=== PATIENT | female | born 1965 | race Asian ===

== ENCOUNTER 2023-01-31 11:00 | Outpatient (RCR) | payer BC, SELFPAY | END 2023-01-31 23:59 | disposition home or self-care (01) | LOC: RPT 11:00 | PROVIDERS: ATTENDING PHYSICIAN Nurse Practitioner Adult Health; PRIMARYCARE PHYSICIAN Physician Assistant | DX: N39.3 Stress incontinence (female) (male) (principal); N39.41 Urge incontinence; M62.89 Other specified disorders of muscle; R27.8 Other lack of coordination; Z73.6 Limitation of activities due to disability; M62.81 Muscle weakness (generalized) | CPT/HCPCS: 97014; 97112; 97530 ==

== ENCOUNTER 2023-02-15 16:57 | Outpatient (RCR) | payer BC, SELFPAY | END 2023-02-15 23:59 | disposition home or self-care (01) | LOC: RPT 16:57 | PROVIDERS: ATTENDING PHYSICIAN Orthopaedic Surgery Hand Surgery; PRIMARYCARE PHYSICIAN Physician Assistant | DX: M75.42 Impingement syndrome of left shoulder (principal) | CPT/HCPCS: 97010; 97110; 97140 ==

== ENCOUNTER 2023-03-18 06:25 | Outpatient (RCR) | payer BC, SELFPAY | END 2023-03-21 07:52 | disposition home or self-care (01) | LOC: RPT 06:25 | PROVIDERS: ATTENDING PHYSICIAN Nurse Practitioner Adult Health; PRIMARYCARE PHYSICIAN Physician Assistant | DX: N39.3 Stress incontinence (female) (male) (principal); N39.41 Urge incontinence; M62.89 Other specified disorders of muscle; Z73.6 Limitation of activities due to disability | CPT/HCPCS: 97014; 97112; 97530 ==

== ENCOUNTER 2023-03-29 10:10 | Outpatient (RCR) | payer BC, SELFPAY | END 2023-03-29 23:59 | disposition home or self-care (01) | LOC: RPT 10:10 | PROVIDERS: ATTENDING PHYSICIAN Orthopaedic Surgery Hand Surgery; PRIMARYCARE PHYSICIAN Physician Assistant | DX: M75.42 Impingement syndrome of left shoulder (principal); Z73.6 Limitation of activities due to disability | CPT/HCPCS: 97110; 97140 ==

== ENCOUNTER 2023-04-28 12:03 | Outpatient (RCR) | payer BC, SELFPAY | END 2023-04-28 23:59 | disposition home or self-care (01) | LOC: RPT 12:03 | PROVIDERS: ATTENDING PHYSICIAN Orthopaedic Surgery Hand Surgery; PRIMARYCARE PHYSICIAN Physician Assistant | DX: M75.42 Impingement syndrome of left shoulder (principal); Z73.6 Limitation of activities due to disability | CPT/HCPCS: 97010; 97110; 97140 ==

== ENCOUNTER 2023-05-27 09:03 | Outpatient (RCR) | payer BC, SELFPAY | END 2023-05-27 23:59 | disposition home or self-care (01) | LOC: RPT 09:03 | PROVIDERS: ATTENDING PHYSICIAN Orthopaedic Surgery Hand Surgery; PRIMARYCARE PHYSICIAN Physician Assistant | DX: M75.42 Impingement syndrome of left shoulder (principal); Z73.6 Limitation of activities due to disability | CPT/HCPCS: 97110; 97140 ==

== ENCOUNTER → 2023-06-23 06:43 | Outpatient (REF) | payer BC, SELFPAY | LOC: WDC 06:43 | PROVIDERS: ATTENDING PHYSICIAN Nurse Practitioner Adult Health; FAMILY PHYSICIAN Physician Assistant | DX: Z12.31 Encounter for screening mammogram for malignant neoplasm of breast (principal) | CPT/HCPCS: 77063; 77067 ==

== ENCOUNTER → 2023-08-18 11:49 | Outpatient (REF) | payer BC, SELFPAY ==
[2023-08-18 13:41] LABS: % Basophils 0.8 % (0-2); % Eosinophils 2.4 % (0-6); % Immature Granulocytes 0.3 % (0-0.5); % Lymphocytes 38.1 % (20.5-51.1); % Monocytes 3.9 % (1.7-9.3); % Neutrophils 54.5 % (42.2-75.2); Absolute Basophils 0.1 10^3/uL (0-0.2); Absolute Eosinophils 0.2 10^3/uL (0-0.7); Absolute Lymphocytes 2.8 10^3/uL (1.2-3.4); Absolute Monocytes 0.3 10^3/uL (0.1-0.6); Absolute Neutrophils 4.1 10^3/uL (1.4-6.5); Hematocrit 39.9 % (37.0-47.0); Hemoglobin 13.9 g/dL (12.0-16.0); Mean Corp Hgb Conc. 34.8 g/dL (33.0-37.0); Mean Corpuscular Hgb 30.2 pg (27.0-31.0); Mean Corpuscular Volume 86.6 fL (81.0-99.0); Mean Platelet Volume 9.7 fL (7.4-10.4); Nucleated Red Blood Cells % 0 %; Platelet Count 333 10^3/uL (130-400); Red Blood Cell Count 4.61 10^6/uL (4.20-5.40); Red Cell Dist. Width 12.1 % (11.5-14.5); White Blood Cell Count 7.5 10^3/uL (4.8-10.8)
[2023-08-18 14:02] LABS: ALT (SGPT) 21 U/L (0-35); AST (SGOT) 30 U/L (14-36); Albumin 4.8 g/dl (3.5-5.0); Alkaline Phosphatase 78 U/L (38-126); Blood Urea Nitrogen 17 mg/dl (7-17); Calcium 9.8 mg/dl (8.4-10.2); Carbon Dioxide 27 mmol/L (22-30); Chloride 104 mmol/L (98-107); Glucose 94 mg/dl (70-99); HDL Cholesterol 80 mg/dl; LDL Cholesterol, Calculated 131 mg/dl; Potassium 4.6 mmol/L (3.5-5.1); Sodium 140 mmol/L (135-145); Total Bilirubin 0.6 mg/dl (0.2-1.3); Total Cholesterol 236 mg/dl (50-199); Total Protein 8.1 g/dl (6.3-8.2); Triglyceride 129 mg/dl (10-149); Very Low Density Lipoprotein 25 mg/dl (0-30); eGFR > 60.00
== END ==
LOC: REG 11:49
PROVIDERS: ATTENDING PHYSICIAN Physician Assistant
DX: Z00.00 Encounter for general adult medical examination without abnormal findings (principal); I10 Essential (primary) hypertension; F98.8 Other specified behavioral and emotional disorders with onset usually occurring in childhood and adolescence; N81.6 Rectocele; E78.2 Mixed hyperlipidemia
CPT/HCPCS: 36415; 80053; 80061; 84443; 85025

== ENCOUNTER → 2024-01-02 08:16 | Outpatient (REF) | payer BC, SELFPAY | LOC: RCS 08:16 | PROVIDERS: ATTENDING PHYSICIAN Internal Medicine Cardiovascular Disease; FAMILY PHYSICIAN Physician Assistant | DX: I10 Essential (primary) hypertension (principal) | CPT/HCPCS: 93306 ==

== ENCOUNTER → 2024-01-18 10:17 | Outpatient (REF) | payer BC, SELFPAY | LOC: CPAP 10:17 | PROVIDERS: ATTENDING PHYSICIAN Nurse Practitioner Adult Health | DX: Z01.419 Encounter for gynecological examination (general) (routine) without abnormal findings (principal); N87.9 Dysplasia of cervix uteri, unspecified | CPT/HCPCS: 87070 ==

== ENCOUNTER 2024-05-04 06:24 | Day surgery (SDC) | payer OTHER, SELFPAY | END 2024-05-04 10:45 | disposition home or self-care (01) | LOC: GI 06:24 | PROVIDERS: ATTENDING PHYSICIAN Internal Medicine Gastroenterology | DX: Z12.11 Encounter for screening for malignant neoplasm of colon (principal); D12.0 Benign neoplasm of cecum; D12.2 Benign neoplasm of ascending colon; K57.30 Diverticulosis of large intestine without perforation or abscess without bleeding; Z86.0101 Personal history of adenomatous and serrated colon polyps; Z83.719 Family history of colon polyps, unspecified | CPT/HCPCS: 45385; 88305 ==

== ENCOUNTER 2024-05-06 03:16 | Inpatient (IN) | payer OTHER, SELFPAY ==
[2024-05-05 20:55] VITALS: BP 159/76
[2024-05-05 21:16] LABS: % Basophils 0.6 % (0-2); % Eosinophils 1.3 % (0-6); % Immature Granulocytes 0.3 % (0-0.5); % Lymphocytes 30.2 % (20.5-51.1); % Monocytes 4.3 % (1.7-9.3); % Neutrophils 63.3 % (42.2-75.2); Absolute Basophils 0.1 10^3/uL (0-0.2); Absolute Eosinophils 0.1 10^3/uL (0-0.7); Absolute Lymphocytes 3.1 10^3/uL (1.2-3.4); Absolute Monocytes 0.4 10^3/uL (0.1-0.6); Absolute Neutrophils 6.4 10^3/uL (1.4-6.5); Hematocrit 35.1 % (37.0-47.0); Hemoglobin 12.3 g/dL (12.0-16.0); Mean Corpuscular Hgb 30.2 pg (27.0-31.0); Mean Corpuscular Volume 86.2 fL (81.0-99.0); Mean Platelet Volume 8.8 fL (7.4-10.4); Nucleated Red Blood Cells % 0 %; Platelet Count 292 10^3/uL (130-400); Red Blood Cell Count 4.07 10^6/uL (4.20-5.40); Red Cell Dist. Width 12.2 % (11.5-14.5); White Blood Cell Count 10.1 10^3/uL (4.8-10.8)
[2024-05-05 21:28] LABS: ALT (SGPT) 28 U/L (0-35); AST (SGOT) 26 U/L (14-36); Albumin 4.7 g/dl (3.5-5.0); Alkaline Phosphatase 76 U/L (38-126); Blood Urea Nitrogen 25 mg/dl (7-17); Calcium 9.5 mg/dl (8.4-10.2); Carbon Dioxide 21 mmol/L (22-30); Chloride 101 mmol/L (98-107); Glucose 182 mg/dl (70-99); Sodium 135 mmol/L (135-145); Total Bilirubin 0.6 mg/dl (0.2-1.3); Total Protein 7.1 g/dl (6.3-8.2); eGFR > 60.00
[2024-05-05 22:35] VITALS: BMI 26.3
--- NOTE | 2024-05-05 22:39 | EDRN ---
Pt had a colonoscopy yesterday morning and was alright yesterday. Pt had BM this morning, no blood. This afternoon, pt went to the bathroom and passed bright red blood and clots and has been doing so approximately every 30 minutes. Pt called
doctor but did not leave a message. Pt denies abd pain, n/v, cp, sob, fever/chills/cough. Pt feels 'a little lightheaded or tired, I'm not sure which.'
[2024-05-05 22:41] VITALS: BP 148/75
[2024-05-05 23:00] VITALS: BP 131/69
--- NOTE | 2024-05-05 23:10 | ED.GENMED ---
History of Present Illness
General
Chief Complaint: Rectal Bleeding
Source: patient, spouse, previous radiology exam (Echocardiogram December 2023, unremarkable showing EF of 60%. No valvular abnormalities.) and previous hospital records (Colonoscopy performed yesterday with 10 mm polypectomy at cecum, 5 mm
polypectomy ascending colon.)
Exam Limitations: none
Time Seen by Provider: 05/05/24 22:53
Nursing documentation reviewed up to this point in time: agreed with
History of Present Illness
History of Present Illness:
This is a 58-year-old woman with history of hypertension, anxiety, ADD who underwent surveillance colonoscopy yesterday with 10 mm polypectomy of the cecum, 5 mm polypectomy of the ascending colon. Colonoscopy also noted diverticulosis.
She was feeling well today and passed a normal bowel movement this morning but around 4:30 PM she began to pass maroon to bright red blood with clots. Initial bloody stool approximately 1 cup fall. Since then she has passed bright red blood per
rectum every 30 to 60 minutes perhaps 6 or 7 episodes in total. She does admit to very mild lightheadedness, no diaphoresis, no chest pain or palpitations, no cough. She admits to perhaps very mild dyspnea on exertion. She also notes intermittent
mild crampy lower abdominal discomfort more so when she feels the need to pass a bowel movement.
She takes no anticoagulants.
She did not notify GI.
Past History
Past History
ED Past Medical History: HTN and Psychiatric
ED Past Surgical History: Other (Previous eye surgery)
Social History
Tobacco: Former smoker
Alcohol: Occasional
Drug: None
Personal:
Living: with family
Employment: Retired (Nurse)
Family History
Family History: Cancer (Colon cancer)
Phy Exam
Physical Exam
Physical Exam:
GENERAL: 58-year-old woman appears her stated age, bright and alert, pleasant, appears in no acute distress. and daughter are accompanying. Vital signs within normal limits.
EYE: anicteric
NECK: Supple, nontender, no meningismus, no significant adenopathy.
ENT: oral mucosa is moist. No rhinorrhea.
CARDIAC: Regular rate and rhythm. no murmur.
LUNGS: Clear breath sounds bilaterally, no acute respiratory distress, no wheezes/rales/rhonchi
ABDOMEN: Soft, nondistended, without focal tenderness, no r/g, no cvat. normoactive BS.
NEUROLOGICAL: Alert and oriented x3, no focal neuro deficits.
SKIN: Warm and dry, normal color, skin intact. No rash.
MUSCULOSKELETAL: No C/C/E. peripheral pulses are full and equal b/l. No palpable tenderness.
PSYCH: Normal and appropriate interaction.
Course
Orders/Labs/Results
Orders:
Orders
05/05/24 21:05
Type And Crossmatch [Type+Screen] Urgent
CBC/With Diff [Complete Blood Count/With Diff] Urgent
CMP [Comprehensive Metabolic Panel] Urgent
05/05/24 22:44
ABO2 Urgent
BBK Wristband Number:
Associate notified that ABO2 has been ordered: [id number]
Date: 05/05/24
Time: 21:16
[employer] ID: [id number]
05/05/24 22:56
0.9% Sodium Chloride 1000 ml [Nss] 1,000 ml IV BOLUS
05/05/24 23:09
0.9% Sodium Chloride 1000 ml [Nss] 1,000 ml IV BOLUS
05/06/24 00:00
Ct Cta A/P W/Wo Urgent
Reason For Exam: rectal bleeding. cecal and asd colon polypect yest
05/06/24 00:50
Hematocrit Urgent
Hemoglobin Urgent
Abnormal Lab Results
05/05/24 05/06/24
21:05 00:50
RBC 4.07 L 10^6/uL
(4.20-5.40)
Hgb 9.9 L g/dL
(12.0-16.0)
Hct 35.1 L % 27.5 L %
(37.0-47.0) (37.0-47.0)
Carbon Dioxide 21 L mmol/L
(22-30)
BUN 25 H mg/dl
(7-17)
Glucose 182 H mg/dl
(70-99)
05/06/24 00:50
05/05/24 21:05
Vital Signs
Initial and Last Documented VS:
Initial Vital Signs
Temp Pulse Resp BP Pulse Ox
97.6 F 121 17 159/76 98
05/05/24 20:55 05/05/24 20:55 05/05/24 20:55 05/05/24 20:55 05/05/24 20:55
Last Documented Vital Signs
Temp Pulse Resp BP Pulse Ox
97.6 F 102 19 131/69 98
05/05/24 20:55 05/05/24 23:00 05/05/24 23:00 05/05/24 23:00 05/05/24 20:55
MDM/Problems Addressed
Differential Diagnosis Includes:
Concern for polypectomy site bleeding, other consideration is acute diverticular bleeding.
Concern for acute blood loss anemia.
Thus far hemodynamically stable.
Will initiate IV fluid bolus�x [address] angiogram of the abdomen pelvis.
Will contact GI with results.
*Radiology
Radiology exam reviewed: radiology read reviewed
*Pulse Oximetry
Patient hypoxic: no
*Oral Therapist Interpretation
Rate: normal
Interpretation: normal
Rhythm: sinus
*Critical Care Note
Total Time (30-74mins, 75-104mins- exclusive of procedures): 30
comment:
Critical care statement: A total of 30 minutes of critical care time was provided for this patient. This includes management of unstable vital signs, evaluation of the patient at bedside, reviewing the patient's pertinent medical records, discussion
with consultants, review of old EKGs and review of pertinent medical records. This time with separate from time utilized to perform the aforementioned documented procedures
Update Note
Update Note:
01:00
Thus far patient remains hemodynamically stable but continues with moderate rectal bleeding generally every hour.
CTA shows active extravasation near the cecum and questionably within the sigmoid colon. Sigmoid colonic bleeding is much less likely as patient had no instrumentation/biopsy at the sigmoid colon.
Case discussed with GI who recommends admit to hospitalist service and continue n.p.o. status.
Repeat H&H pending.
GI plans for urgent colonoscopy if patient becomes unstable.
ED Attending Note
-
Portions of this chart may have been created with voice recognition software.� Occasional wrong word or��sound alike� substitutions may have occurred due to the inherent limitations of voice recognition software.
Discharge Plan
Departure
Patient Disposition: Admit
Date of Disposition: 05/06/24
Time of Disposition: 01:01
Admit to: ICU
Admit to doctor: Bernardo
Presentation/result/management discussed w/ accepting MD/DO: Hospitalist
Condition: Serious
Discharge Problem:
Acute lower gastrointestinal hemorrhage, Post-polypectomy bleeding
Prescriptions:
No Action
sertraline 100 mg Tablet
100 mg PO DAILY
valsartan 80 mg Tablet
80 mg PO DAILY
valacyclovir 500 mg Tablet
500 mg PO BIDPRN PRN (Reason: herpes)
dextroamphetamine-amphetamine [Adderall XR] 20 mg Capsule,Extended Release 24hr
20 mg PO DAILY
metoprolol succinate 25 mg Tablet Extended Release 24 Hr
25 mg PO DAILY
Centrum Silver Women 8 mg iron-400 mcg-50 mcg Tablet
1 tab PO DAILY
Referrals:
Lisa Crawford PA-C [Family Provider] -
Interventions
Interventions:
*Risk Screen - Suicide Last Done: 05/05/24 20:55
*General Assessment Last Done: 05/05/24 20:55
*Neglect/Abuse Screening Last Done: 05/05/24 20:55
*ED- Fall Risk Assessment Last Done: 05/05/24 23:00
*ED COVID-19 Vaccine History Last Done: 05/05/24 20:55
RH-Pyplep-Awcioalqvg Assessment Last Done: 05/05/24 23:35
ED- Cardiac Assessment Last Done: 05/05/24 23:00
ED- Pulmonary Assessment Last Done: 05/05/24 23:00
Discharge Date and Time
Print Language: ROMANSH
[2024-05-05] MEDS: NSS 1000 IV ×2 (23:17→23:18)
[2024-05-06] VITALS (43 sets, daily range): BP systolic 102–140; BP diastolic 53–92; BMI 26.0
[2024-05-06 01:00] LABS: Hematocrit 27.5 % (37.0-47.0); Hemoglobin 9.9 g/dL (12.0-16.0)
[2024-05-06] MEDS: LR 1000 IV (01:27)
--- NOTE | 2024-05-06 01:44 | EDRN ---
White card sent for 1st unit PRBC
--- NOTE | 2024-05-06 01:50 | EDRN ---
Pt using [facility] again, Dr Chang asking pt when she last ate. Blood bank called and said blood is ordered on hold for OR or give if unstable. Dr Chang informed and said to give a unit now, informed blood bank needs the order changed.
--- NOTE | 2024-05-06 01:56 | HPS.HSE ---
Family Physician
-
Family Physician: Lisa Crawford
Chief Complaint
-
BRBPR
History of Present Illness
Patient is a 58y F with PMH significant for hypertension who presents to ED complaining of BRBPR. Patient underwent colonoscopy on 05/04/24. She had polypectomy at the cecum (10mm) and the ascending colon (5mm). Patient tolerated the procedure
well and notes that she felt well yesterday and this AM. She states that she had a large BM this AM with no evidence of blood. Around 4:30 PM today, she had a large bowel movement that consisted primarily of clots and gross blood. Since that
time, she has had multiple additional episodes. Initially every 30 minutes or so and - here in the ED - now every 15-20 minutes or so.
Patient had no other symptoms prior to presentation to the ED. At the time of my examination, she reports some nausea and lightheadedness.
She takes no ASA or anticoagulants. No history of bleeding disorders, etc.
Patient denies any abdominal pain, fevers / chills, etc.
Medical History
Past Medical History
Past Medical History: Reports Other
Additional Past Medical History:
Hypertension
Migraines
Anxiety / Depression
ADHD
Past Surgical History: Reports None
Social History
Tobacco: Former Smoker (Quit smoking 30 years ago.)
Alcohol: Occasional
Drug: None
Family History
Family History: Not pertinent
Allergies / Home Medications
Allergies reflects when Allergies were last updated in [employer].
Home Medications with original date entered in [employer]
Allergy/Medication List:
Allergies
Allergy/AdvReac Type Severity Reaction Status Date / Time
No Known Allergies Allergy Unverified 05/05/24 22:35
Home Medications
dextroamphetamine-amphetamine ER 20 mg 24hr capsule,extend release (Adderall XR) 20 mg PO DAILY 05/05/24
metoprolol succinate 25 mg tablet,extended release 24 hr 25 mg PO DAILY 05/05/24
ergacduk-siod-vzgx 8 mg-folic 400 mcg-K 50 mcg-lutein 300 mcg tablet (Centrum Silver Women) 1 tab PO DAILY 05/05/24
sertraline 100 mg tablet 100 mg PO DAILY 05/05/24
valacyclovir 500 mg tablet 500 mg PO BIDPRN PRN herpes 05/05/24
valsartan 80 mg tablet 80 mg PO DAILY 05/05/24
Review of Systems
-
History Source: Patient
A 12 point ROS was completed and negative except as noted: Yes
Constitutional: Reports Fatigue; Denies Fever or Chills
Respiratory: Denies Cough or Trouble Breathing
Cardiac: Denies Chest Pain or Palpitations
Abdomen/GI: Reports Nausea and Bloody Stools; Denies Abdominal Pain or Vomiting
: Denies Dysuria or Frequency
Musculoskeletal: Denies Joint Pain or Edema
Neurological: Denies Dizzy or Headache
Psych: Denies Depression or Anxiety
Physical Exam
Vital Signs
Vital Signs
Temp Pulse Resp BP Pulse Ox
97.6 F 88 11 108/92 98
05/05/24 20:55 05/06/24 01:37 05/06/24 01:37 05/06/24 01:37 05/05/24 20:55
Physical Exam
General: Other (58y F - mildly pale-appearing - in no acute distress.)
HEENT: Moist mucous membranes and PERRLA
Respiratory: Clear; No Wheezes, Rales or Rhonchi
Cardiac: S1/S2 and Regular Rhythm; No Murmur
GI: Soft, Non Tender, Non Distended, Normal Bowel Sounds and Other (Gross blood per rectum - mutliple episodes here in the ED.)
Musculoskeletal: No Clubbing, No Cyanosis and No Edema
Neuro: AO x 3
Laboratory Results
-
05/06/24 00:50
05/05/24 21:05
Laboratory Results
Total Bilirubin 0.6 mg/dl (0.2-1.3) 05/05/24 21:05
AST 26 U/L (14-36) 05/05/24 21:05
ALT 28 U/L (0-35) 05/05/24 21:05
Alkaline Phosphatase 76 U/L (38-126) 05/05/24 21:05
Impression/Plan
-
A/P: Patient is a 58y F with PMH significant for hypertension who presents to ED complaining of BRBPR s/p colonoscopy with polypectomy done the day prior to admission.
Postpolypectomy Bleeding
Acute Blood Loss Anemia
- Admit to ICU for further evaluation and treatment.
- Two large bore IVs in place with aggressive volume expansion.
- Two units PRBCs ordered now with ongoing blood loss and fall in Hgb from 12.3 to 9.9 in the past few hours.
- GI consulted and to evaluate patient here in the ED for additional recommendations.
- CT done in the ED shows focus of active blood loss in the cecum - very likely site of recent polypectomy.
- Patient may require intervention - with either repeat colonoscopy or IR angio - to control bleeding.
- Avoid antiplatelets, NSAIDs, etc.
- Follow H&H and provide additional blood product support as needed.
Benign Hypertension
- Hold all antihypertensive medications acutely in setting of volume loss / relative hypotension.
DVT Prophylaxis: SCDs
Code Status: Full
--- NOTE | 2024-05-06 03:42 | EDRN ---
Called report to Cnadido in ICU
--- NOTE | 2024-05-06 03:43 | EDRN ---
Pt using BSC, HR in 120's.
--- NOTE | 2024-05-06 04:11 | CON.GI ---
Consultation
-
Date/Time Consultation Requested: 05/06/24 at 1am
Date/Time Consultation Performed: 05/06/24 at 3am (time change occurred over that time)
Requesting Provider: raquel
Performing Provider: senait
Reason for Consultation: post polypectomy bleedng
Medical History
Chief Complaint / HPI
Chief Complaint: bleeding
History of Present Illness:
A 58-year-old woman with history of hypertension who is having a screening colonoscopy on May 04 in the morning. She did have a flat polyp removed with snare cautery in the cecum. She also the smaller polyp removed in the ascending colon.
Another polyp was greater than a centimeter and I did view the pictures. She had some scattered small diverticula. She had a normal bowel movement this morning and has been eating. She did have blood per rectum about 4:30 PM this evening. She
states that it occurred every 1/2 hour with some blood and clots. She did eventually come to the hospital in the late evening. In between she did eat dinner. She denies any abdominal pain and is only dizzy when she stands up. She otherwise feels
well. She continues to have bleeding intermittently with clots and blood per rectum. Her hemoglobin did drop 2 units while she was in the ER. She did take 2 NSAIDs but that was last weekend. She otherwise is not on any anticoagulation. CTA
showed extravasation in the cecum which question of the sigmoid.
Past Medical History
Past Medical History: HTN and Other (Migraines, anxiety)
Past Surgical History: None
Social History
Tobacco: Former Smoker
Alcohol: Occasional
Family History
Family History: Reviewed & Not Pertinent
Allergies / Home Medications
Allergy/AdvReac Type Severity Reaction Status Date / Time
No Known Allergies Allergy Unverified 05/05/24 22:35
�Medication �Instructions �Recorded
dextroamphetamine-amphetamine ER 20 mg PO DAILY 05/05/24
20 mg 24hr capsule,extend release
(Adderall XR)
metoprolol succinate 25 mg 25 mg PO DAILY 05/05/24
tablet,extended release 24 hr
dcdqopbs-vblt-lwld 8 mg-folic 400 1 tab PO DAILY 05/05/24
mcg-K 50 mcg-lutein 300 mcg tablet
(Centrum Silver Women)
sertraline 100 mg tablet 100 mg PO DAILY 05/05/24
valacyclovir 500 mg tablet 500 mg PO BIDPRN PRN herpes 05/05/24
valsartan 80 mg tablet 80 mg PO DAILY 05/05/24
Review of Systems
-
All other systems: A 12 pt ROS was Negative except as stated above in HPI
Vital Signs
Temp Pulse Resp BP Pulse Ox
97.6 F 85 20 128/60 98
05/06/24 03:25 05/06/24 03:25 05/06/24 03:25 05/06/24 03:25 05/05/24 20:55
Physical Exam
Exam
General: No Apparent Distress
Respiratory: Clear
Cardiac: S1/S2
GI: Soft and Non Tender
Rectal: Other (clots and blood, ? stool in commode)
Skin: Warm
Neuro: AO x 3
Psych: Calm
Results
WBC 10.1 10^3/uL (4.8-10.8) 05/05/24 21:05
Hgb 9.9 g/dL (12.0-16.0) L 05/06/24 00:50
Hct 27.5 % (37.0-47.0) L 05/06/24 00:50
MCV 86.2 fL (81.0-99.0) 05/05/24 21:05
Plt Count 292 10^3/uL (130-400) 05/05/24 21:05
Absolute Neuts (auto) 6.4 10^3/uL (1.4-6.5) 05/05/24 21:05
Sodium 135 mmol/L (135-145) 05/05/24 21:05
Potassium 4.0 mmol/L (3.5-5.1) 05/05/24:
Chloride 101 mmol/L (98-107) 05/05/24:
Carbon Dioxide 21 mmol/L (22-30) L 05/05/24:
BUN 25 mg/dl (7-17) H 05/05/24:
Creatinine 0.9 mg/dL (0.6-1.0) 05/05/24:
Calcium 9.5 mg/dl (8.4-10.2) 05/05/24:
Total Bilirubin 0.6 mg/dl (0.2-1.3) 05/05/24:
AST 26 U/L (14-36) 05/05/24:
ALT 28 U/L (0-35) 05/05/24:
Alkaline Phosphatase 76 U/L (38-126) 05/05/24:
Assessment / Plan
-
Patient is a 58-year-old woman with a post polypectomy bleed in the cecum. She has dropped her hemoglobin 2 g while being in the ER but is hemodynamically stable right now. For now we will do the following:
1. Discussed with patient and family that since she is stable ideally we would do a modified prep and colonoscopy. She does need this as she was eating and did have a large bm this morning (non bloody). Alternatively if she becomes unstable she
would go to IR first. 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 I did request 8am from nurse color control supervisor as she will be done with prep more than 2 hours befoe.
2. agree with 2 units blood
3. follow hgb
4. NPO
5. Pt in ICU for monitoring
-
-
Thank you for consultation and allowing me to participate in the patient's care. Please call the provider contracting consultant GI physician during the after hours with any questions or concerns.
[2024-05-06] MEDS: MIRALAX 51 GRAMS PO (04:41)
[2024-05-06 04:57] LABS: Glucose - Point of Care 110 mg/dl (70-99)
--- NOTE | 2024-05-06 05:00 | PTCARENOTE ---
Received pt. from ED. Pt. awake, alert, and oriented. Denies pain/discomfort. Afebrile. Heart rhythm sinus. Blood pressure normotensive. Currently on room air. Lungs sound clear. Multiple bloody BM with clots. GI at bedside. Plan to bowel prep pt.
then take for colonoscopy. Voiding without issue. Skin as documented. Discussed plan of care with patient. Vital signs stable at this time.
[2024-05-06 05:24] LABS: INR 1.02; PT 13.7 Sec (11.4-14.6)
[2024-05-06 05:25] LABS: APTT 29.7 Sec (23.4-35.0)
[2024-05-06 05:42] LABS: Blood Urea Nitrogen 18 mg/dl (7-17); Calcium 7.9 mg/dl (8.4-10.2); Carbon Dioxide 20 mmol/L (22-30); Chloride 107 mmol/L (98-107); Estimated Creatinine Clearance 80 ml/min; Glucose 114 mg/dl (70-99); Magnesium 1.7 mg/dl (1.6-2.3); Phosphorus 3.2 mg/dl (2.5-4.5); Sodium 137 mmol/L (135-145); eGFR > 60.00
[2024-05-06 05:47] LABS: % Basophils 0.6 % (0-2); % Eosinophils 1.7 % (0-6); % Immature Granulocytes 0.5 % (0-0.5); % Lymphocytes 28.3 % (20.5-51.1); % Monocytes 4.9 % (1.7-9.3); Absolute Basophils 0.1 10^3/uL (0-0.2); Absolute Eosinophils 0.1 10^3/uL (0-0.7); Absolute Lymphocytes 2.2 10^3/uL (1.2-3.4); Absolute Monocytes 0.4 10^3/uL (0.1-0.6); Absolute Neutrophils 4.9 10^3/uL (1.4-6.5); Hematocrit 29.9 % (37.0-47.0); Mean Corp Hgb Conc. 33.4 g/dL (33.0-37.0); Mean Corpuscular Hgb 29.9 pg (27.0-31.0); Mean Corpuscular Volume 89.3 fL (81.0-99.0); Mean Platelet Volume 8.9 fL (7.4-10.4); Nucleated Red Blood Cells % 0 %; Platelet Count 202 10^3/uL (130-400); Red Blood Cell Count 3.35 10^6/uL (4.20-5.40); Red Cell Dist. Width 12.7 % (11.5-14.5); White Blood Cell Count 7.7 10^3/uL (4.8-10.8)
--- NOTE | 2024-05-06 07:11 | W.PN.HOSP.TC ---
Today's Communication/Plan
-
monitor H&H
diet as per GI
resume home antihypertensives with holding parameters
pain control
blood pressure control
Assessment / Plan
Assessment / Plan
Physical Exam
General: mild moderate discomfort d/t abd pain
HEENT: Moist mucous membranes and PERRLA
Respiratory: Clear; No Wheezes, Rales or Rhonchi
Cardiac: S1/S2 and Regular Rhythm; No Murmur
GI: Soft, mild tenderness, bowel sounds present
Musculoskeletal: No Clubbing, No Cyanosis and No Edema
Neuro: AO x 3
A/P: Patient is a 58y F with PMH significant for hypertension who presents to ED complaining of BRBPR s/p colonoscopy with polypectomy done the day prior to admission.
Postpolypectomy Bleeding
Acute Blood Loss Anemia
- ICU admit
- Two large bore IVs in place with aggressive volume expansion.
- Received total Two units PRBCs with ongoing blood loss and fall in Hgb from 12.3 to 9.9 in hours.
- CT showed focus of active blood loss in the cecum - very likely site of recent polypectomy.
- GI consult appreciated Colonoscopy performed identified large vessel actively bleeding in cecum, 2/2 previous polypectomy, cauterized
- [employer] eval appreciated
- Avoid antiplatelets, NSAIDs
- Follow H&H and provide additional blood product support as needed.
Hypertension
- Home Valsartan Metoprolol resumed with holding parameters
DVT Prophylaxis: SCDs
Code Status: Full
Total Critical Care Time__40___ minutes. I was immediately available to the patient and staff. I personally examined, reviewed labs, diagnostic images/reports, interpretations, treatment plans, discussed patient care with other providers,
patient, and patient's Puneet, entered orders as appropriate and documented the medical record.
Anticipated Discharge: 24 - 48 hours
Subjective/Interval History
-
Date of Service: May 06, 2024
reports nausea abd cramping/tenderness. stable respiratory status on room air.
Objective Data
-
Labs:
Laboratory Results
05/05/24 05/06/24 05/06/24
21:05 00:50 04:53
WBC 10.1 7.7
Hgb 12.3 9.9 L 10.0 L
Hct 35.1 L 27.5 L 29.9 L
Plt Count 292 202 D
PT 13.7
INR 1.02
APTT 29.7
Sodium 135 137
Potassium 4.0 4.0
Chloride 101 107
Carbon Dioxide 21 L 20 L
BUN 25 H 18 H
Creatinine 0.9 0.7
Glucose 182 H 114 H
Calcium 9.5 7.9 L D
Total Bilirubin 0.6
AST 26
ALT 28
Alkaline Phosphatase 76
05/06/24 05/06/24 05/06/24
08:00 10:08 16:08
WBC
Hgb Pending Pending Pending
Hct Pending Pending Pending
Plt Count
PT
INR
APTT
Sodium
Potassium
Chloride
Carbon Dioxide
BUN
Creatinine
Glucose
Calcium
Total Bilirubin
AST
ALT
Alkaline Phosphatase
05/06/24
22:08
WBC
Hgb Pending
Hct Pending
Plt Count
PT
INR
APTT
Sodium
Potassium
Chloride
Carbon Dioxide
BUN
Creatinine
Glucose
Calcium
Total Bilirubin
AST
ALT
Alkaline Phosphatase
Vital Signs:
Vital Signs
Temp Pulse Resp BP Pulse Ox
97.9 F 78 19 127/84 100
05/06/24 05:38 05/06/24 06:30 05/06/24 06:30 05/06/24 06:00 05/06/24 05:30
I&O
05/05/24 05/06/24 05/07/24
05:59 06:59 06:59
Intake Total
Balance
[2024-05-06] MEDS: PROTONIX IV 40 MG IV (07:13)
--- NOTE | 2024-05-06 07:36 | PTCARENOTE ---
2nd unit PRBCs transfused. Vitals stable. Patient transported to GI lab.
[2024-05-06] MEDS: ZOFRAN 4 MG IV (08:50)
--- NOTE | 2024-05-06 08:55 | PTCARENOTE ---
Patient back from GI lab. C/o nausea and abdominal cramping. Zofran administered. Placed on bedpan for BM. VSS.
[2024-05-06] MEDS: MORPHINE SULFATE 2 MG IV (09:30)
[2024-05-06] MEDS: COMPAZINE 5 MG IV (09:31)
[2024-05-06 09:42] LABS: Hematocrit 30.1 % (37.0-47.0); Hemoglobin 10.7 g/dL (12.0-16.0)
--- NOTE | 2024-05-06 09:46 | PTCARENOTE ---
Patient with worsening nausea s/p zofran. Emesis x1; bile appearance. No BM. Abdominal cramping unrelieved. Orders for 2mg Morphine and 5mg Compazine obtained and administered. Patient now resting comfortably. Repeat H&H - 10.7/30.1.
[2024-05-06] MEDS: CALCIUM GLUCONATE 100 IV (10:16)
--- NOTE | 2024-05-06 11:05 | CON.INTV ---
Consultation
Consultation Request
Date/Time Consultation Requested: 05/06/2024
Date/Time Consultation Performed: 05/06/2024
Requesting Provider: Rajiv Chang
Performing Provider: Buck Ramos
Reason for Consultation: GI Bleed
Medical History
-
Chief Complaint: Bright red blood per rectum
History of Present Illness:
Very pleasant 58-year-old female presented to the emergency room for bright red blood per rectum. Patient recently had an endoscopy performed about 2 days ago on 05/04 24. She was noted to have polyp and had polypectomy performed at cecum as well
as ascending colon. Patient was subsequently discharged home and did well for some time and then she had a large BM with blood later in the evening. Then she had several further episodes with some blood in it which prompted a visit to the
emergency room. Patient had not been on any antiplatelets or anticoagulants and without any previous such history. She was suspected to have post polypectomy bleeding and in view of frequency of GI bleed, she was admitted to the ICU for closer
monitoring.
Patient was evaluated by GI service and subsequently had a colon prep performed followed by a colonoscopy on 308. Patient was noted to have post polypectomy bleeding and she had 2 clips placed as well as epi injected. She was evaluated after this
procedure in the ICU in the room where she was hemodynamically stable during my evaluation.
Past Medical History
Past Medical History: Reports Other
Additional Past Medical History:
Hypertension
Migraines
Anxiety / Depression
ADHD
Past Surgical History: Reports None
Social History
Tobacco: Former Smoker (Quit smoking 30 years ago.)
Alcohol: Occasional
Drug: None
Family History
Family History: Not pertinent
Allergies / Home Medications
Allergies
Allergy/AdvReac Type Severity Reaction Status Date / Time
No Known Allergies Allergy Unverified 05/05/24 22:35
Home Medications
�Medication �Instructions �Recorded �Confirmed �Last Taken �Type
dextroamphetamine-amphetamine ER 20 mg PO DAILY 05/05/24 05/05/24 Unknown History
20 mg 24hr capsule,extend release
(Adderall XR)
metoprolol succinate 25 mg 25 mg PO DAILY 05/05/24 05/05/24 Unknown History
tablet,extended release 24 hr
jwvnocew-yzpz-laiu 8 mg-folic 400 1 tab PO DAILY 05/05/24 05/05/24 Unknown History
mcg-K 50 mcg-lutein 300 mcg tablet
(Centrum Silver Women)
sertraline 100 mg tablet 100 mg PO DAILY 05/05/24 05/05/24 Unknown History
valacyclovir 500 mg tablet 500 mg PO BIDPRN PRN herpes 05/05/24 05/05/24 Unknown History
valsartan 80 mg tablet 80 mg PO DAILY 05/05/24 05/05/24 Unknown History
Review of Systems
-
Hematologic/Lymphatic: Other (All 14 systems reviewed and negative except as stated above in the history of present illness. Patient reports bloating post colonoscopy and also feels nauseous.)
Vitals / Labs / Diagnostic Testing
Vital Signs
Temp Pulse Resp BP Pulse Ox
97.7 F 70 17 116/65 97
05/06/24 07:21 05/06/24 10:00 05/06/24 10:00 05/06/24 10:00 05/06/24 10:00
Lab Data
05/06/24 22:08
05/06/24 04:53
Laboratory Results
05/06/24
04:53
PT 13.7
INR 1.02
APTT 29.7
Diagnostic Testing:
Physical Exam
-
HEENT: Normocephalic
Cardiovascular: S1/S2
Respiratory: Clear and Non-Labored Respirations
GI: Soft and Tender (Mostly periumbilical tenderness, no rebound or rigidity.)
Neurology: Awake
Skin: Warm
General: Comfortable
Assessment
-
Very pleasant 58-year-old female presented to the emergency room 24 hours after colonoscopy and polypectomy for lower GI bleed. She was admitted to the ICU for concern of frequent episodes of GI bleed. She had a colonoscopy repeated on 308 noted
to have post polypectomy bleeding and had a epi injected as well as 2 clips placed.
#1. Acute blood loss anemia with hematochezia.
-Admission CT GI bleed positive for contrast extravasation within the cecum
-Repeat colonoscopy suggestive of post polypectomy site bleeding status post epinephrine injection as well as clip placement
-Hemoglobin dropped from 12.3-9.9 and subsequently has been stable around 10. PT and INR normal. Basic metabolic panel normal.
-Serial H&H to ensure stability
-Clear liquids per GI service, advance diet as tolerated subsequently
Patient has no known pulmonary disease and has never smoked in the past.
Critical Care time 60 mins -- The patient is admitted for acute critical illness for the treatment of vital organ failure and/or prevention of further life-threatening conditions. Total care includes time spent in review of history, physical exam,
medications, hemodynamic/ventilator parameters, laboratory data, imaging and discussion with house staff, pharmacy, respiratory therapy, manager culinary, and nursing.
If evening hemoglobin stays stable and no further hematochezia noted, patient can be transferred out of ICU.
--- NOTE | 2024-05-06 12:23 | PTCARENOTE ---
Patient feeling better overall. OOB to BSC for large void. No BM. VSS. Tolerating clears. No other changes. Repeat labs ordered for 1800.
--- NOTE | 2024-05-06 15:59 | PTCARENOTE ---
No changes in assessment. NSR on tele. ST with ambulation. No s/s bleeding. Patient assisted in ordering clears for dinner. No further n/v.
[2024-05-06 18:18] LABS: % Basophils 0.5 % (0-2); % Eosinophils 1.2 % (0-6); % Immature Granulocytes 0.4 % (0-0.5); % Lymphocytes 30.4 % (20.5-51.1); % Monocytes 4.3 % (1.7-9.3); % Neutrophils 63.2 % (42.2-75.2); Absolute Basophils 0.1 10^3/uL (0-0.2); Absolute Eosinophils 0.1 10^3/uL (0-0.7); Absolute Lymphocytes 3.1 10^3/uL (1.2-3.4); Absolute Monocytes 0.4 10^3/uL (0.1-0.6); Absolute Neutrophils 6.3 10^3/uL (1.4-6.5); Hematocrit 30.6 % (37.0-47.0); Hemoglobin 10.5 g/dL (12.0-16.0); Mean Corp Hgb Conc. 34.3 g/dL (33.0-37.0); Mean Corpuscular Hgb 29.8 pg (27.0-31.0); Mean Corpuscular Volume 86.9 fL (81.0-99.0); Mean Platelet Volume 8.7 fL (7.4-10.4); Nucleated Red Blood Cells % 0 %; Platelet Count 191 10^3/uL (130-400); Red Blood Cell Count 3.52 10^6/uL (4.20-5.40); Red Cell Dist. Width 13.2 % (11.5-14.5)
--- NOTE | 2024-05-06 20:00 | PTCARENOTE ---
Rec'd pt resting in bed, amb ad el to bathroom w/o difficulty, no dizziness, no pain, SR, bp stable, + pulses, skin warm/dry, RA, lungs clear, sat 100, + bowel sounds, 'had bloody stool w/ sm clots' when went to bathroom, nannette clear liquids, voiding
w/o difficulty
--- NOTE | 2024-05-06 23:45 | PTCARENOTE ---
sys reviewed, changes noted
[2024-05-07] VITALS (13 sets, daily range): BP systolic 103–156; BP diastolic 55–94; BMI 25.5
--- NOTE | 2024-05-07 03:47 | PTCARENOTE ---
sys reviewed, amb to bathroom, voided 'had sm amt bloody stool'
[2024-05-07 04:02] LABS: Hematocrit 30.6 % (37.0-47.0); Hemoglobin 10.7 g/dL (12.0-16.0); Mean Corpuscular Hgb 30.4 pg (27.0-31.0); Mean Corpuscular Volume 86.9 fL (81.0-99.0); Mean Platelet Volume 9.1 fL (7.4-10.4); Platelet Count 205 10^3/uL (130-400); Red Blood Cell Count 3.52 10^6/uL (4.20-5.40); Red Cell Dist. Width 13.2 % (11.5-14.5); White Blood Cell Count 9.5 10^3/uL (4.8-10.8)
[2024-05-07 04:22] LABS: Blood Urea Nitrogen 8 mg/dl (7-17); Calcium 9.3 mg/dl (8.4-10.2); Carbon Dioxide 26 mmol/L (22-30); Chloride 106 mmol/L (98-107); Estimated Creatinine Clearance 70 ml/min; Glucose 99 mg/dl (70-99); Magnesium 1.6 mg/dl (1.6-2.3); Potassium 3.8 mmol/L (3.5-5.1); Sodium 137 mmol/L (135-145); eGFR > 60.00
[2024-05-07] MEDS: MAGNESIUM SULFATE 102 GRAMS IV (06:32)
--- NOTE | 2024-05-07 07:45 | PTCARENOTE ---
Assumed care of patient. Pt rec'd sleeping...easily arousable...alert and oriented x 3. Pleasant. Denies any pain at present. S1 S2 reg w/ NSR on monitor. +PP. No edema. Steady gait w/ ambulation. On R/A...lungs clear. Abdomen round..hyper
BS. Continent for loose blood tinged stool. Voids yellow in bathroom. Skin WNL. RH 20P. LFA 18P. VS documented. Call marcus within reach. Will continue to monitor.
[2024-05-07] MEDS: PROTONIX IV 40 MG IV (08:10)
--- NOTE | 2024-05-07 08:10 | W.PN.INTV ---
Today's Communication / Plan
Recommendations
H&H stable
Tolerating regular diet
No active bleeding seen overnight over this morning
Avoid NSAIDs going forward, unless cleared otherwise by GI
Patient is being prepared for discharge home. No additional recommendations at this time. Assistant Plant Manager/Pulmonary service will now sign off. Please reconsult if there are any additional questions/concerns, or if patient's respiratory status
deteriorates.
Assessment
-
Very pleasant 58-year-old female presented to the emergency room 24 hours after colonoscopy and polypectomy for lower GI bleed. She was admitted to the ICU for concern of frequent episodes of GI bleed. She had a colonoscopy repeated on 308 noted
to have post polypectomy bleeding and had a epi injected as well as 2 clips placed.
#1. Acute blood loss anemia with hematochezia in setting of recent polypectomy during colonoscopy on 05/04/2024
-Admission CTA on 05/06/2024 showed active bleed within the cecuc
-Repeat colonoscopy on 05/06/2024 showed a large visible ulcer with clot actively bleeding in the cecum secondary to previous polypectomy --> injected and clipped with no bleeding seen at the end of the procedure
-H&H is stable today at 10.7
-Maintain MAP >65
-Mild oozing of blood seen rectally with no BRBPR
-On regular diet and tolerating
-GI following and patient is cleared for discharge home; patient advised to avoid NSAIDs
-Outpatient follow-up with GI
Patient has no known pulmonary disease and has never smoked in the past.
Patient is being prepared for discharge home. No additional recommendations at this time. Assistant Plant Manager/Pulmonary service will now sign off. Thank you for allowing us to be involved in the care of this patient. Please reconsult if there are any
additional questions/concerns, or if patient's respiratory status deteriorates.
Total time spent today was 43 minutes for this encounter. Time includes reviewing laboratory test/imaging results, reviewing pertinent medical records, obtaining and reviewing medical history, performing an appropriate exam, ordering medications,
tests and procedures. Time also includes documentation of this encounter, coordinating patient care and communicating with other healthcare professionals. Total time does not include separately billed tests performed on this date of service.
Subjective Dataa
Subjective Data
Date of Service:
Date of Service: May 07, 2024
Chief Complaint: Assistant Plant Manager Follow Up
Subjective:
Patient seen and evaluated this morning. Hb stable this morning at 10.7, from 10.5 yesterday evening. Having some blood-tinged stool this morning. This morning patient's heart rate is 83, BP 104/59 and saturating 98% on room air. She is on her
phone this morning, feeling well. Denies chest pain, SOB, abdominal pain, fevers or chills.
Review of Systems
General: Other (Negative unless mentioned above)
Objective Data
Data Reviewed
Vital Signs / I&O / Oxygen:
Vital Signs
Temp Pulse Resp BP Pulse Ox
98.4 F 75 14 128/84 98
05/07/24 07:39 05/07/24 08:16 05/07/24 06:00 05/07/24 08:16 05/07/24 06:00
Intake and Output
05/06/24 05/07/24 05/08/24
06:59 06:59 06:59
Intake Total 1130 / 1130
Balance 1130 / 1130
SaO2 98
Physical Exam
General: Respiratory Distress (negative), Comfortable and Chills (negative)
HEENT: Normocephalic and Anicteric
Cardiovascular: S1-S2 and Peripheral Edema (negative)
Respiratory: Clear, Wheeze (negative), Crackles (negative), Rhonchi (negative) and Non-Labored Respirations
GI: Soft, Non Distended, Non Tender and Normal Bowel Sounds
Neurology: AO x 3 and Tremors (negative)
Skin: Warm, Dry and Cyanosis (negative)
Labs/Micro/Reports
Lab Data
05/07/24 03:39
05/07/24 03:39
--- NOTE | 2024-05-07 08:10 | W.PN.GI.CBS2 ---
Today's Communication / Plan
-
ok for d/c
Assessment / Plan
-
Pt with post polypectomy bleed,
- stable and no further bleeding
- hgb stable
- regular diet
ok for d/c
pt knows no nsaids
Subjective
Subjective
Date of Service: May 07, 2024
Pt w/o bleeding since procedure
Objective
Data Reviewed
Laboratory Data:
Laboratory Results
05/07/24 03:39
05/07/24 03:39
Laboratory Results
PT 13.7 Sec (11.4-14.6) 05/06/24 04:53
INR 1.02 05/06/24 04:53
APTT 29.7 Sec (23.4-35.0) 05/06/24 04:53
Phosphorus 4.0 mg/dl (2.5-4.5) 05/07/24 03:39
Magnesium 1.6 mg/dl (1.6-2.3) 05/07/24 03:39
Total Bilirubin 0.6 mg/dl (0.2-1.3) 05/05/24 21:05
AST 26 U/L (14-36) 05/05/24 21:05
ALT 28 U/L (0-35) 05/05/24 21:05
Alkaline Phosphatase 76 U/L (38-126) 05/05/24 21:05
Vital Signs and I&O:
Vital Signs
Temp Pulse Resp BP Pulse Ox
98.4 F 76 14 142/80 98
05/07/24 07:39 05/07/24 06:00 05/07/24 06:00 05/07/24 06:00 05/07/24 06:00
I&O
05/06/24 05/07/24 05/08/24
06:59 06:59 06:59
Intake Total 1130 / 1130
Balance 1129
Physical Exam
Physical Exam
GI: Soft, Non Distended and Non Tender
--- NOTE | 2024-05-07 08:15 | PTCARENOTE ---
Diet advanced by KALPANA GRIJALVA. Pt placed on regular diet.
[2024-05-07] MEDS: THERAGRAN 1 TABLET PO (08:16)
[2024-05-07] MEDS: DIOVAN 80 MG PO (08:16)
[2024-05-07] MEDS: ZOLOFT 100 MG PO (08:16)
[2024-05-07] MEDS: TOPROL XL 25 MG PO (08:16)
--- NOTE | 2024-05-07 09:52 | W.PN.HOSP.TC ---
Today's Communication/Plan
-
dc home
Assessment / Plan
Assessment / Plan
Assessment:
Postpolypectomy Bleeding
Acute Blood Loss Anemia due to GI bleed
- s/p 2 unit PRBCs this admission
- CT: active bleeding in cecum, corresponding to site of recent polypectomy
- s/p Colonoscopy 05/06 with large vessel actively bleeding in cecum, 2/2 previous polypectomy, cauterized
- Hb stable today
- ok for DC per GI
- No NSAIDs at discharge
Essential Hypertension
- Home Valsartan Metoprolol resumed with holding parameters
DVT Prophylaxis: SCDs
Code Status: Full
Anticipated Discharge: Today
Subjective/Interval History
-
Date of Service: May 07, 2024
Hb stable
no further bleeding
Objective Data
-
Labs:
Laboratory Results
05/07/24
03:39
WBC 9.5
Hgb 10.7 L
Hct 30.6 L
Plt Count 205
Sodium 137
Potassium 3.8
Chloride 106
Carbon Dioxide 26
BUN 8
Creatinine 0.8
Glucose 99
Calcium 9.3
Vital Signs:
Vital Signs
Temp Pulse Resp BP Pulse Ox
98.4 F 75 14 128/84 98
05/07/24 07:39 05/07/24 08:16 05/07/24 06:00 05/07/24 08:16 05/07/24 06:00
I&O
05/06/24 05/07/24 05/08/24
06:59 06:59 06:59
Intake Total 1130 / 1130
Balance 1130 / 1130
Physical Exam
-
General: No Apparent Distress
HEENT: Normocephalic and Atraumatic
Respiratory: Negative Wheezes
Cardiac: Regular Rhythm and S1/S2
GI: Soft
Hematologic / Lymphatic: No Lymphadenopathy
Psych: Calm
Data Reviewed
-
Total Time Spent with Patient (in minutes): 41
Labs: Labs Reviewed by me
--- NOTE | 2024-05-07 09:56 | W.DS.TRANS ---
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
-
Discharge Instructions:
Discharge Diagnosis/Procedures post-polypectomy bleeding s/p 2 units pRBC and
Colonoscopy 05/06
Diet Regular
Activity As tolerated
Instructions:
Stand-Alone Forms:
Changes to Home Medications: No
Discharge Medications:
DC Medications w/original date entered in [facility] [employer]
dextroamphetamine-amphetamine ER 20 mg 24hr capsule,extend release (Adderall XR) 20 mg PO DAILY 05/05/24
metoprolol succinate 25 mg tablet,extended release 24 hr 25 mg PO DAILY 05/05/24
pxsrjyex-yrmh-vhzn 8 mg-folic 400 mcg-K 50 mcg-lutein 300 mcg tablet (Centrum Silver Women) 1 tab PO DAILY 05/05/24
sertraline 100 mg tablet 100 mg PO DAILY 05/05/24
valacyclovir 500 mg tablet 500 mg PO BIDPRN PRN herpes 05/05/24
valsartan 80 mg tablet 80 mg PO DAILY 05/05/24
Home Medication Changes
Pending Results: No
Total time spent discharging patient (in min): 41
--- NOTE | 2024-05-07 10:07 | CM ---
CM following re: discharge planning.
Reviewed pt's chart, met with pt.
Pt is a 58 year old female, admitted with primary dx of post-polypectomy bleeding s/p 2 units pRBC and Colonoscopy 05/06.
Pt reports she lives with , sister in law and a son in a 2SH, 1 step to enter, has 5 supportive children. 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
Discharge order noted. Pt is aware and she stated her is coming to transport home.
No after care VN services indicated.
PCP: Lisa Crawford
Pharmacy: [facility]
D/C plan: home no needs. to transport.
--- NOTE | 2024-05-07 12:30 | PTCARENOTE ---
Discharge instructions reviewed and copy provided to patient. clinical research monitor and IV sites removed.
--- NOTE | 2024-05-07 12:45 | PTCARENOTE ---
Staff escort via wheelchair... will drive pt home. All belongings taken w/ patient.
[2024-05-07 15:52] LABS: Vitamin D, 25-OH*** 32.8 ng/mL (30-80)
== END 2024-05-07 13:18 | disposition home or self-care (01) | DRG 920 ==
LOC: ICU 03:16
PROVIDERS: Emergency Medicine; Internal Medicine; Nurse Practitioner Family; ADMITTING PHYSICIAN Hospitalist; ATTENDING PHYSICIAN Internal Medicine; CONSULT PHYSICIAN Internal Medicine; EMERGENCY PHYSICIAN Emergency Medicine; FAMILY PHYSICIAN Physician Assistant
PROC: 0W3P8ZZ Control Bleeding in Gastrointestinal Tract, Via Natural or Artificial Opening Endoscopic (ICD-10-PCS; 2024-05-06)
PROC: 30233N1 Transfusion of Nonautologous Red Blood Cells into Peripheral Vein, Percutaneous Approach (ICD-10-PCS; 2024-05-06)
DX: K91.840 Postprocedural hemorrhage of a digestive system organ or structure following a digestive system procedure (principal); D62 Acute posthemorrhagic anemia; K63.3 Ulcer of intestine; K92.1 Melena; Y83.8 Other surgical procedures as the cause of abnormal reaction of the patient, or of later complication, without mention of misadventure at the time of the procedure; I10 Essential (primary) hypertension; K57.30 Diverticulosis of large intestine without perforation or abscess without bleeding; Z87.891 Personal history of nicotine dependence
CPT/HCPCS: 36430; 71045; 74174; 80048; 80053; 82306; 82962; 83735; 84100; 85014; 85018; 85025; 85027; 85610; 85730; 86850; 86900; 86901; 86920; 93005; 96360; 99291; P9016; Q9967

== ENCOUNTER → 2024-11-16 11:21 | Outpatient (REF) | payer OTHER, SELFPAY | LOC: HWRCS 11:21 | PROVIDERS: ATTENDING PHYSICIAN Internal Medicine Cardiovascular Disease; FAMILY PHYSICIAN Physician Assistant | DX: R07.9 Chest pain, unspecified (principal); R79.89 Other specified abnormal findings of blood chemistry; I10 Essential (primary) hypertension | CPT/HCPCS: 78452; 93017; A9500 ==

== ENCOUNTER → 2024-11-28 09:12 | Outpatient (REF) | payer OTHER, SELFPAY | LOC: RCS 09:12 | PROVIDERS: ATTENDING PHYSICIAN Internal Medicine Cardiovascular Disease; FAMILY PHYSICIAN Physician Assistant | DX: R07.9 Chest pain, unspecified (principal); R79.89 Other specified abnormal findings of blood chemistry; I10 Essential (primary) hypertension | CPT/HCPCS: 93306 ==

== ENCOUNTER → 2025-01-31 12:30 | Outpatient (REF) | payer OTHER, SELFPAY | LOC: HWWDC 12:30 | PROVIDERS: ATTENDING PHYSICIAN Physician Assistant | DX: Z12.31 Encounter for screening mammogram for malignant neoplasm of breast (principal) | CPT/HCPCS: 77063; 77067 ==